=== PATIENT | female | born 1965 | race Caucasian/White ===

== ENCOUNTER 2023-02-09 18:59 | Emergency (ER) | payer BC ==
[2023-02-09] MEDS ORDERED: HYDROcodone/Acetaminophen 10/325 mg Tablet ONE (19:27)
[2023-02-09] MEDS ORDERED: Lidocaine 1% PF 5 ML VIAL ONE ×2 (20:16)
[2023-02-09] MEDS ORDERED: Boostrix 0.5 ML (Tdap) VIAL (>/=7 yrs of age) ONE (20:37)
[2023-02-09] MEDS ORDERED: Bacitracin 1 PK ONE (20:45)
== END 2023-02-09 20:55 | disposition home or self-care (01) ==
LOC: BURERS 18:59
DX: S01.02XA Laceration with foreign body of scalp, initial encounter (principal); Z23 Encounter for immunization; W55.12XA Struck by horse, initial encounter
CPT/HCPCS: 70450; 72125; 90471; 90715

== ENCOUNTER 2023-02-10 08:58 | Outpatient (CLI) | payer BC | END 2023-02-10 08:59 | disposition home or self-care (01) | LOC: BURRAD 08:58 | PROVIDERS: ATTEND Physician Assistant | DX: R07.9 Chest pain, unspecified (principal); W55.12XD Struck by horse, subsequent encounter | CPT/HCPCS: 71046 ==